=== PATIENT | male | born 1995 | race Caucasian/White ===

== ENCOUNTER 2021-11-06 08:23 | Emergency (ER) | payer MEDICAID ==
[~2021-11-06] VITALS: Ht 185.4 cm; Wt 86.0 kg
[2021-11-06 08:26] VITALS: BP 168/84
[2021-11-06] MEDS ORDERED: SODIUM CHLORIDE 0.9% 1,000 ML IV ONE (09:00)
[2021-11-06 11:50] LABS: BASOPHILS % 0.2 % (0.0-2.0); EOSINOPHILS % 0.2 % (0.0-5.0); HEMATOCRIT. 44.8 % (42.0-52.0); HEMOGLOBIN. 14.4 g/dL (14.0-18.0); LYMPHOCYTES % 8.7 % (20.0-50.0); MEAN CORPUSCULAR HEMOGLOBIN 26.8 pg (28.0-32.0); MEAN CORPUSCULAR VOLUME 83.2 fL (80.0-94.0); MEAN PLATELET VOLUME 9.5 fl (7.4-10.4); MONOCYTES % 6.7 % (2.0-8.0); NEUTROPHILS % 84.2 % (40.0-76.0); PLATELET 211 x1000/uL (130-400); RED BLOOD CELL COUNT 5.38 mill/uL (4.7-6.1)
[2021-11-06 11:52] LABS: CLARITY URINE CLEAR (CLEAR); COLOR URINE YELLOW (YELLOW); KETONES URINE NEGATIVE (NEGATIVE); LEUKOCYTE ESTERASE URINE NEGATIVE (NEGATIVE); NITRITE URINE NEGATIVE (NEGATIVE); OCCULT BLOOD URINE NEGATIVE (NEGATIVE); PH URINE 6.5 (4.5-8.0); PROTEIN URINE TRACE (NEGATIVE); SPECIFIC GRAVITY URINE 1.028 (1.005-1.030)
[2021-11-06 11:59] LABS: CHLORIDE 103 mEq/L (98-107)
[2021-11-06 12:06] LABS: ETHANOL BLOOD < 10 mg/dL
[2021-11-06 12:24] LABS: *AMPHETAMINES SCREEN URINE NEGATIVE (NEGATIVE); *BARBITURATES SCREEN URINE NEGATIVE (NEGATIVE); *BENZODIAZEPINES SCREEN URINE NEGATIVE (NEGATIVE); *COCAINE SCREEN URINE NEGATIVE (NEGATIVE); CANNABINOID URINE SCREEN PRESUMTIVE POSITIVE (NEGATIVE); METHADONE URINE SCREEN NEGATIVE (NEGATIVE); OPIATES URINE SCREEN NEGATIVE (NEGATIVE); PHENCYCLIDINE URINE SCREEN NEGATIVE (NEGATIVE)
== END 2021-11-06 13:39 | disposition home or self-care (01) ==
LOC: ER 08:39
DX: T43.211A Poisoning by selective serotonin and norepinephrine reuptake inhibitors, accidental (unintentional), initial encounter (principal); T45.0X1A Poisoning by antiallergic and antiemetic drugs, accidental (unintentional), initial encounter; F12.188 Cannabis abuse with other cannabis-induced disorder; R53.1 Weakness; R53.81 Other malaise; R00.0 Tachycardia, unspecified; G47.00 Insomnia, unspecified
CPT/HCPCS: 36415; 71045; 80053; 80305; 80307; 80320; 80329; 81003; 84484; 85025; 93005; 96360; 99285; J7030; G0480

== ENCOUNTER 2023-05-10 13:14 | Emergency (ER) | payer MEDICAID, OTHER ==
[~2023-05-10] VITALS: Ht 182.9 cm; Wt 90.0 kg
[2023-05-10 13:27] VITALS: O2SAT 97
[2023-05-10] MEDS ORDERED: BACITRACIN ZINC OINT UDPKT TOP ONE (15:15)
[2023-05-10] MEDS ORDERED: LIDOCAINE HCL/PF 1% 10 MG/ML 5ML VIAL INFIL ONE (15:15)
[2023-05-10 17:26] VITALS: BP 144/92; PULSE 96; RESP 17; TEMP 98.7
== END 2023-05-10 17:34 | disposition home or self-care (01) ==
LOC: ER 13:24
DX: R04.0 Epistaxis (principal); I10 Essential (primary) hypertension; J45.909 Unspecified asthma, uncomplicated
CPT/HCPCS: 99281; Z7610